=== PATIENT | male | born 1955 | race Caucasian/White ===

== ENCOUNTER 2017-08-21 22:08 | Emergency (ER) | payer OTHER ==
[~2017-08-21] VITALS: Ht 182.9 cm; Wt 99.8 kg
[~2017-08-21 22:08] MED LIST: AMLODIPINE BESY10 MG PO; BENZTROPINE ME0.5 MG PO; CLONAZEPAM 0.50.5 M1 PO; CLONAZEPAM 1 MG1 M1 PO; DEPAKOTE 250MG250 M1 PO; FLOMAX0.4 MG PO; HALOPERIDOL 1 MG1 MG PO; HYDROCODON-ACE1 EAC7 PO; HYDROCODONE-AP1 EAC6 PO; LACTULOSE10 GM/152 PO; LANTUS SUBQ; LEVEMIR100 UNIT/1 SQ; LITHIUM CARBON450 MG PO; NOVOLOG100 UNIT/1; OLANZAPINE15 MG PO; PEPCID20 MG PO; PERCOCET 5-3251 EACH PO; POTASSIUM20 PO; PROPRANOLOL 1010 MG PO; PROPRANOLOL 4040 MG PO; SEROQUEL 50 MG50 MG PO; SINEMET 25-1001 EAC1 PO; WELLBUTRIN SR150 MG PO
[2017-08-21] MEDS ORDERED: NORCO 5-325 TA1 EACH PO (23:17)
[2017-08-21 23:32] VITALS: BP 142/75
[2018-01-03] MEDS ORDERED: SYNTHROID50 MCG PO (08:46)
[2018-01-03] MEDS ORDERED: RISPERIDONE0.5 MG PO (08:47)
[2018-01-03] MEDS ORDERED: ARTIFICIAL TEA1 EACH OPHTHALMIC (08:48)
[2018-01-03] MEDS ORDERED: DOXYCYCLINE 10100 MG PO (11:18)
== END 2017-08-21 23:35 | disposition home or self-care (01) ==
LOC: ER 22:08
DX: S00.12XA Contusion of left eyelid and periocular area, initial encounter (principal); E11.9 Type 2 diabetes mellitus without complications; F03.90 Unspecified dementia, unspecified severity, without behavioral disturbance, psychotic disturbance, mood disturbance, and anxiety; F20.9 Schizophrenia, unspecified; Z79.4 Long term (current) use of insulin; Z88.1 Allergy status to other antibiotic agents; W07.XXXA Fall from chair, initial encounter; Y93.89 Activity, other specified; Y92.89 Other specified places as the place of occurrence of the external cause; Y99.8 Other external cause status

== ENCOUNTER 2018-01-10 10:14 | Emergency (ER) | payer OTHER ==
[~2018-01-10] VITALS: Ht 182.9 cm; Wt 104.3 kg
--- NOTE | ~2018-01-10 | EKG ---
[address] [place] [address] ELECTROCARDIOGRAM REPORT Name: LM HACKETT Room #: PRE ER M.R.#: [id number] Admission: Attend Phys: Discharge: Date of : 51 Report #: [id number] THIS REPORT FOR: //name// 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 : 1955 Requested By: Edna Coley Order Number: [id number] MD: Ar Shine Measurements Intervals [place] Rate: 74 P: 12 MT: 142 QRS: -33 QRSD: 157 T: -7 QT: 433 QTc: 481 Interpretive Statements Sinus rhythm Right bundle branch block Probable inferior infarct, age indeterminate Lateral leads are also involved Compared to ECG 08/08/2013 14:16:43 No significant changes Electronically Signed On 01-10-2018 10:49:26 CDT by Ar Shine [email or web address] <ELECTRONICALLY SIGNED> By: Ar Shine MD 01/10/18 1049 1020 1020 Ar Shine MD /BAYRON
[~2018-01-10 10:14] MED LIST changes: -AMLODIPINE BESY10 MG PO; -CLONAZEPAM 0.50.5 M1 PO; -DEPAKOTE 250MG250 M1 PO; -FLOMAX0.4 MG PO; -HALOPERIDOL 1 MG1 MG PO; -HYDROCODONE-AP1 EAC6 PO; -LACTULOSE10 GM/152 PO; -LEVEMIR100 UNIT/1 SQ; -NOVOLOG100 UNIT/1; -PEPCID20 MG PO; -PERCOCET 5-3251 EACH PO; -PROPRANOLOL 1010 MG PO; -SEROQUEL 50 MG50 MG PO
[2018-01-10 10:56] LABS: ABSOLUTE NEUTROPHILS 3.9 thou/uL (1.4-8.2); BASOPHILS 0.6 % (0.0-2.0); HEMATOCRIT 36.2 % (42.0-52.0); HEMOGLOBIN 12.3 gm/dL (14.0-18.0); LYMPHOCYTES 13.5 % (24.0-44.0); MCH 30.8 pg (26.0-34.0); MCV 90.6 fL (80.0-100.0); MONOCYTES 8.7 % (1.0-8.0); PLATELET COUNT 169 thou/uL (150-400); POLYS 75.2 % (36.0-66.0); WBC 5.2 thou/uL (4.0-11.0)
[2018-01-10 11:08] LABS: ANION GAP 4 mmol/L (7-16); BUN 33 mg/dL (7-18); CALCIUM 9.5 mg/dL (8.5-10.1); CHLORIDE 108 mmol/L (98-107); CO2 30 mmol/L (21-32); CREATININE 1.8 mg/dL (0.7-1.3); GLUCOSE 308 mg/dL (74-106); POTASSIUM 4.2 mmol/L (3.5-5.1); SODIUM 142 mmol/L (136-145)
[2018-01-10 11:18] LABS: TROPONIN-I <0.06 ng/mL (<0.06)
[2018-01-10] MEDS ORDERED: AZITHROMYCIN 2250 MG PO (11:41)
[2018-01-10] MEDS ORDERED: ALBUTEROL2.5 MG/31 INH (11:41)
== END 2018-01-10 12:42 | disposition home or self-care (01) ==
LOC: ER 10:14
PROVIDERS: Nurse Practitioner Family
DX: J18.9 Pneumonia, unspecified organism (principal); F31.9 Bipolar disorder, unspecified; F20.9 Schizophrenia, unspecified; Z88.2 Allergy status to sulfonamides